=== PATIENT | female | born 1995 | race Caucasian/White ===

== ENCOUNTER 2019-05-22 23:23 | Emergency (ER) | payer MEDICAID ==
[~2019-05-22] VITALS: Ht 162.6 cm; Wt 68.0 kg
--- NOTE | 2019-05-22 23:23 | NUR ---
Unable to triage patient. Brought in by law enforcement via BLS for public intoxication. Patient is rambling and cursing, using racial slurs at staff, law enforcement, and EMS personnel. Patient is screaming threats at all personnel as well.
[2019-05-22] MEDS ORDERED: LORazepam 2 MG/ML VIAL IM ONE (23:30)
--- NOTE | 2019-05-22 23:37 | NUR ---
Patient to ER bed 5 to gown for evaluation. Side rails up. Report given to DRAGAN Jin.
[2019-05-22 23:38] VITALS: BP_SYST 119
[2019-05-22] MEDS ORDERED: HALOPERIDOL LACTATE 5 MG/ML VIAL IM ONE (23:45)
[2019-05-22] MEDS ORDERED: DIPHENHYDRAMINE INJ 50 MG/ML VIAL IM ONE (23:45)
[2019-05-22] MEDS ORDERED: LORazepam 2 MG/ML VIAL ONE (23:46)
--- NOTE | 2019-05-23 | NUR ---
Dr. Gonsales bedside for pt eval
--- NOTE | 2019-05-23 00:15 | NUR ---
Pt [employer] law enforcement to ED presented with unknown past medical history altered mental status this evening. Police reports the patient was found intoxicated in public. While in the ED, she is aggressive, uncooperative, and yelling offensive remarks to staff. The patient is here for medical clearance. No other complaints and or injuries noted VSS no s/s of acute distress Resting on gurney rails up
[2019-05-23 00:57] LABS: BASOPHILS % (AUTO) 0.8 % (0.0-2.0); EOSINOPHILS # (AUTO) 0.2 K/uL (0.0-0.4); EOSINOPHILS % (AUTO) 4.7 % (0.0-4.0); HEMOGLOBIN 13.5 g/dL (12.0-16.0); LYMPHOCYTES # (AUTO) 1.7 K/uL (1.0-5.5); LYMPHOCYTES % (AUTO) 37.3 % (20.5-51.5); MEAN CORPUSCULAR HEMOGLOBIN 31 pg (27-31); MEAN CORPUSCULAR HGB CONC 33 % (32-36); MEAN CORPUSCULAR VOLUME 95 fL (79.0-98.0); MONOCYTES # (AUTO) 0.3 K/uL (0.0-1.0); MONOCYTES % (AUTO) 7.2 % (1.7-9.3); NEUTROPHILS # (AUTO) 2.2 K/uL (1.8-7.7); PLATELET COUNT (AUTO) 262 K/uL (130-430); RED BLOOD CELL COUNT(AUTO) 4.33 MIL/uL (4.2-6.2); RED CELL DISTRIBUTION WIDTH 13.2 % (9.0-15.0); WHITE BLOOD COUNT (AUTO) 4.4 K/uL (4.8-10.8)
[2019-05-23 01:12] LABS: ANION GAP 18 (5-15); CALCIUM 8.6 mg/dL (8.4-11.0); CHLORIDE 106 mmol/L (98-107); GLUCOSE 87 mg/dL (70-99); POTASSIUM 3.1 mmol/L (3.5-5.1); SODIUM SERUM 140 mmol/L (136-145); UREA NITROGEN, BLOOD 12 mg/dL (8-21)
[2019-05-23 01:16] LABS: ALANINE AMINOTRANSFERASE 17 U/L (12-78); ALCOHOL, BLOOD 207 mg/dL (<10); ASPARTATE AMINOTRANSFERASE 15 U/L (10-37); CHOLESTEROL 161 mg/dL (<200); HDL CHOLESTEROL 47 mg/dL (>55); LDL CHOLESTEROL 94 mg/dL (<100); TOTAL BILIRUBIN 0.2 mg/dL (0.0-1.0); TRIGLYCERIDES 55 mg/dL (30-150)
--- NOTE | 2019-05-23 01:21 | NUR ---
VSS no s/s of acute distress Resting on gurney rails up
[2019-05-23 01:34] LABS: ACETAMINOPHEN < 1 ug/mL (1-30); GFR AFRICAN AMERICAN 115 mL/min (>90)
--- NOTE | 2019-05-23 02:18 | NUR ---
Law Enforcement continue to remain at bedside, and pt continue to be in stable condition
[2019-05-23 03:30] VITALS: BP_SYST 119
--- NOTE | 2019-05-23 03:30 | NUR ---
Patient given written and verbal discharge instructions and verbalizes understanding. ER MD discussed with patient the results and treatment provided. Patient in stable condition. ID arm band removed. Patient educated on pain management and to follow up with PMD. Pain Scale 0/10 Opportunity for questions provided and answered.
== END 2019-05-23 03:30 ==
LOC: SED 23:23
DX: F23 Brief psychotic disorder (principal); F10.129 Alcohol abuse with intoxication, unspecified; F17.210 Nicotine dependence, cigarettes, uncomplicated; Y90.7 Blood alcohol level of 200-239 mg/100 ml
CPT/HCPCS: 36415; 80053; 80061; 83036; 85025; 96372; 99284; G0480; G0481; G0482; J2060